=== PATIENT | male | born 1930 | race Caucasian/White ===

== ENCOUNTER → 2016-10-06 | Outpatient (CLI) | payer OTHER | LOC: BHFA 13:00 | PROVIDERS: ATTEND Internal Medicine Cardiovascular Disease | DX: I25.10 Atherosclerotic heart disease of native coronary artery without angina pectoris (principal); I10 Essential (primary) hypertension | CPT/HCPCS: 78452; 93017; A9500; J2785 ==

== ENCOUNTER 2016-12-09 06:53 | Inpatient (IN) | payer OTHER ==
[~2016-12-09 06:53] MED LIST: ACETAMINOPHEN 325 MG TAB PO ONE; CEFAZOLIN 2 GM/DEXTR 100 ML IV ONE; CHLORHEXIDINE GLUC HIBICLENS 118 ML BTL TP ONE; DEXAMETHASONE 4 MG/ML VIAL IVP ONE; FAMOTIDINE 20 MG TAB PO ONE; ROPIVACAINE 0.2% 80 MG, EPINEPHrine 0.2 MG in BAG 0 ML IU ONE; TRANEXAMIC ACID 3,000 MG in NS 50 ML IRR ONE
[2016-12-09] MEDS ORDERED: LIDOCAINE 1% 2 ML INJ ONE (07:34)
[2016-12-09] MEDS ORDERED: VANCOMYCIN 1 GM VIAL ONE (08:10)
[2016-12-09] MEDS ORDERED: TRANEXAMIC ACID 3,000 MG/50 ML BAG IRR ONE (08:10)
[2016-12-09] MEDS ORDERED: LR 1,000 ML IV ONE (08:20)
[2016-12-09] MEDS ORDERED: LIDOCAINE 1% 5 ML SDV ID PRN (08:20)
[2016-12-09] MEDS ORDERED: fentaNYL 100 MCG/2 ML INJ ONE (08:25)
[2016-12-09] MEDS ORDERED: MIDAZOLAM 2 MG/2 ML VIAL ONE (09:03)
[2016-12-09] MEDS ORDERED: LIDOCAINE 2% 5 ML SDV ONE (09:25)
[2016-12-09] MEDS ORDERED: PROPOFOL/EMULSION 500 MG/50 ML BOTTLE IV ONE (09:27)
[2016-12-09] MEDS ORDERED: ONDANSETRON 4 MG/2 ML VIAL IVP PRN (10:37)
[2016-12-09] MEDS ORDERED: LACTULOSE 20 GM/30 ML UDCUP PO PRN (10:37)
[2016-12-09] MEDS ORDERED: PHARMACY PAIN CONSULT 1 EA MISC PRN (10:37)
[2016-12-09] MEDS ORDERED: METOCLOPRAMIDE 10 MG/2 ML VIAL IVP PRN (10:37)
[2016-12-09] MEDS ORDERED: MAGNESIUM HYDROXIDE 30 ML UDCUP PO PRN (10:37)
[2016-12-09] MEDS ORDERED: DIPHENOXYLATE/ATROPINE LOMOTIL 1 TAB PO PRN (10:37)
[2016-12-09] MEDS ORDERED: ONDANSETRON DISINTEGRATING 4 MG TAB PO PRN (10:37)
[2016-12-09] MEDS ORDERED: POLYETHYLENE GLYCOL 3350 17 GM PKT PO PRN (10:37)
[2016-12-09] MEDS ORDERED: PROMETHAZINE HCL 25 MG SUPPR PR PRN (10:37)
[2016-12-09] MEDS ORDERED: TEMAZEPAM 15 MG CAP PO PRN (10:37)
[2016-12-09] MEDS ORDERED: CYCLOBENZAPRINE 10 MG TAB PO PRN (10:37)
[2016-12-09] MEDS ORDERED: diphenhydrAMINE 25 MG CAP PO PRN (10:37)
[2016-12-09] MEDS ORDERED: BISACODYL 10 MG SUPP PR PRN (10:37)
--- NOTE | 2016-12-09 10:42 | POSTOPPROG ---
Post Op Note Date of Operation: 12/09/16 Surgeon: Lyle Suazo Shoe Repairer Helper: radha suazo Anesthesiologist: dr. izquierdo Anesthesia: Spinal, Other (Specify) (adductor canal block) Pre-op Diagnosis: R knee OA Post-op Diagnosis: same Indication: right knee pain due to OA that failed conservative measures Procedure: R TKA Findings: severe knee OA Inf/Abcess present in the surg proc area at time of surgery?: No EBL: 50-100
[2016-12-09] MEDS ORDERED: NS 1,000 ML IV SCH (10:45)
[2016-12-09] MEDS: ACETAMINOPHEN 325 MG TAB PO SCH ×3 (12:05→23:51)
[2016-12-09] MEDS: ceFAZolin 2 GM/DEXTROSE 100 ML IV SCH ×2 (14:22→21:03)
[2016-12-09] MEDS: oxyCODONE IR 5 MG TAB PO PRN ×3 (14:24→21:02)
[2016-12-09] MEDS ORDERED: FERROUS SULFATE 325 MG TAB PO SCH (18:00)
--- NOTE | 2016-12-09 20:37 | GOP ---
[f rep st] OPERATIVE REPORT DATE OF OPERATION: 12/09/2016 SURGEON: Kat Dunn MD ORACLE ARCHITECT: VIVIEN Delgado ANESTHESIA: Spinal. PREOPERATIVE DIAGNOSIS: Right knee osteoarthritis. POSTOPERATIVE DIAGNOSIS: Right knee osteoarthritis. PROCEDURE PERFORMED: Right total knee arthroplasty. FINDINGS/PATHOLOGY: Severe medial and patellofemoral osteoarthritis. Preoperative flexion contracture of 10 degrees. ESTIMATED BLOOD LOSS: 30 cc. INDICATIONS: This is an 86-year-old male with severe and progressive pain and deformity of the right knee unresponsive to conservative care. Risks and benefits of the surgical intervention were explained in detail. DESCRIPTION OF PROCEDURE: The patient was brought to the operative room and placed on the table in the supine position. Spinal anesthesia was induced without difficulty. A pneumatic tourniquet was applied about the right proximal thigh, and the leg was prepped and draped in a sterile fashion. The leg alex was applied. After exsanguination by elevation the tourniquet was inflated to 250 mm of mercury. Incision was made anterior medial from the tibial tuberosity to a point 2 cm proximal to the superior pole of the patella. Medial parapatellar arthrotomy was carried out from the superior pole of the patella and posteriorly in line with the fibers of the Type 2 VMO. The medial collateral ligament was elevated and the infrapatellar fat pad was resected. The patella was everted and the articular surface was excised. A 35 mm patellar button was placed. The distal femoral guide hole was drilled and the 6 degree alignment juwan was placed. An 8 mm distal femoral cut was made without difficulty. Attention was turned to the tibia and a standard 9 mm cut based on the lateral tibial condyle was performed. The tibial articular surface was excised without difficulty. Attention was turned back to the femur and a size 4 Triathlon femoral cutting block was positioned. Anterior, posterior, and chamfer cuts were made, followed by the intercondylar box cut. The knee was extended and the remnants of the medial and lateral meniscus were excised. The posterior capsule was injected with ropivacaine, epinephrine and Toradol. A size 4 MIS mini-keel tibial tray was positioned. Trial reduction was then carried out. There was excellent range of motion, alignment, and stability using the 11 mm polyethylene. All trials were then removed. The joint was thoroughly irrigated and carefully dried. Two packages of cement and 2 grams of vancomycin were mixed in the vacuum mixer and placed on the fixation surfaces of all surfaces of the components. The components were implanted and all excess cement was thoroughly removed. The permanent 11 mm polyethylene X3 was placed without difficulty. The tourniquet was deflated and all bleeders were coagulated. The wound was thoroughly irrigated and closed using interrupted sutures of 2-0 Vicryl for the joint capsule. The subcu was closed with 3-0 Vicryl and the skin with 4-0 Monocryl. Dermabond and Steri-Strips were applied followed by a compressive dressing. The patient was then moved from the operating room to the recovery room in good condition, having tolerated the procedure well. /[id number]/MODL MTDD
[2016-12-09] MEDS: SENNOSIDES/DOCUSATE SODIUM TAB PO SCH (21:02)
[2016-12-10] MEDS: ACETAMINOPHEN 325 MG TAB PO SCH ×2 (05:04→11:13)
[2016-12-10 05:39] LABS: HEMATOCRIT 25.2 % (40.0-51.0); HEMOGLOBIN 8.7 g/dL (13.7-17.5)
[2016-12-10 05:53] LABS: ANION GAP 8 mEq/L (8-16); CALCIUM 8.8 mg/dL (8.5-10.4); CARBON DIOXIDE 22 mEq/l (22-31); CHLORIDE 109 mEq/L (97-110); CREATININE 1.2 mg/dL (0.7-1.3); GLOMERULAR FILTRATION RATE 57; GLUCOSE 95 mg/dL (70-100); POTASSIUM 4.6 mEq/L (3.5-5.2); SODIUM 139 mEq/L (134-144)
[2016-12-10] MEDS ORDERED: GABAPENTIN 100 MG CAP PO SCH (06:00)
[2016-12-10 08:13] VITALS: PULSE 57; RESP 18; TEMP 97.7
[2016-12-10] MEDS ORDERED: amLODIPine BESYLATE 5 MG TAB PO SCH (09:00)
[2016-12-10] MEDS ORDERED: ASPIRIN 81 MG CHEWABLE TAB PO SCH (09:00)
[2016-12-10] MEDS ORDERED: SPIRONOLACTONE 25 MG TAB PO SCH (09:00)
[2016-12-10] MEDS ORDERED: FAMOTIDINE 20 MG TAB PO SCH (09:00)
[2016-12-10] MEDS ORDERED: Febuxostat [Uloric] 80 MG PO SCH (09:00)
[2016-12-10] MEDS: oxyCODONE IR 5 MG TAB PO PRN (09:54)
[2016-12-10] MEDS: SENNOSIDES/DOCUSATE SODIUM TAB PO SCH (09:54)
[2016-12-10 09:56] VITALS: BP 145/57
[2016-12-10 10:08] VITALS: O2SAT 97
[2016-12-10] MEDS ORDERED: CLOPIDOGREL BISULFATE 75 MG TAB PO SCH (11:00)
--- NOTE | 2016-12-10 11:26 | SOAPPROG ---
SOAP Progress Note Assessment/Plan: Assessment: Patient is doing well POD 1 s/p R TKA Pain management: pain is well controlled on oral pain meds. VTE ppx: recommend resuming plavix and aspirin, cont DAVY and SCDs Anemia: level is expected initially postop. Asymptomatic. Continue to monitor D/c planning: d/c to home today pending release from PT Plan: 12/10/16 11:25 Subjective: Alber is doing well this morning, denies SOB, chest pain and N/V. Objective: Vital Signs Temp Pulse Resp BP Pulse Ox 36.5 C 57 L 18 145/57 H 97 12/10/16 08:10 12/10/16 08:10 12/10/16 08:10 12/10/16 09:55 12/10/16 08:30 Laboratory Results 12/10/16 05:14 12/10/16 05:14 12/09/16 12/10/16 12/11/16 05:59 05:59 05:59 Intake Total 2955 Output Total 1430 Balance 1525 RLE: incision dressing is clean and dry, NVI, +pf/df ICD10 Worksheet Patient Problems: Problems Problem Status Onset Primary localized osteoarthritis of right knee Acute Acetabulum fracture, left Acute Atrial fibrillation Acute Chronic obstructive pulmonary disease with acute exacerbation Acute Dyspnea Acute Flu Acute
--- NOTE | 2016-12-11 11:12 | GDS ---
[f rep st] DISCHARGE SUMMARY ADMISSION DIAGNOSIS: Right knee osteoarthritis. DISCHARGE DIAGNOSIS: Right knee osteoarthritis. PROCEDURE: Right total knee arthroplasty. VTE PROPHYLAXIS: Plavix recommended. BRIEF DESCRIPTION OF HOSPITAL STAY: Patient was admitted for an elective joint arthroplasty. The p atient tolerated the procedure well and has passed physical therapy. The patient was given appropri ate antibiotic prophylaxis and venous thromboembolism prophylaxis. The patient's pain was well cont rolled on oral pain medication, patient was holding down food, and had urinated. Decision was made to discharge the patient. The patient was given post-operative prescriptions pre-operatively. PLAN: Please follow up as scheduled in Dr. Dunn's office on December 28 at 12:45. /[id number]/MODL
== END 2016-12-10 11:30 | disposition home or self-care (01) | DRG 470 ==
LOC: F3N 06:53
PROVIDERS: ADMIT Orthopaedic Surgery; ATTEND Orthopaedic Surgery
PROC: 0SRC0J9 Replacement of Right Knee Joint with Synthetic Substitute, Cemented, Open Approach (ICD-10-PCS; principal; 2016-12-09 09:15)
DX: M17.11 Unilateral primary osteoarthritis, right knee (principal); D64.9 Anemia, unspecified; I25.10 Atherosclerotic heart disease of native coronary artery without angina pectoris; Z95.1 Presence of aortocoronary bypass graft; Z95.5 Presence of coronary angioplasty implant and graft; I12.9 Hypertensive chronic kidney disease with stage 1 through stage 4 chronic kidney disease, or unspecified chronic kidney disease; N18.9 Chronic kidney disease, unspecified; I73.9 Peripheral vascular disease, unspecified; E78.5 Hyperlipidemia, unspecified; Z85.3 Personal history of malignant neoplasm of breast; Z87.821 Personal history of retained foreign body fully removed
CPT/HCPCS: 97116-GP; 97161-GP; 97165-GO; 97530-GP; C1713; G8978-GP-CI; G8979-GP-CI; G8987-GO-CJ; G8988-GO-CI; G8989-GO-CI; J0171; J0690; J1100; J2250; J2704; J2795; J3010; J3370

== ENCOUNTER 2016-12-12 20:09 | Emergency (ER) | payer OTHER ==
--- NOTE | 2016-12-12 20:23 | EDPHY ---
H & P HPI/ROS: CHIEF COMPLAINT: Family is concerned that patient is over-sedated HISTORY OF PRESENT ILLNESS: This patient is an 86 year old male arriving via EMS complaining of a possible reaction to oxycodone onset this morning around 10:00, 10 hours ago. He is currently post-op day three following total knee replacement by Dr. Dunn on Wednesday. He was discharged home around noon with a prescription for oxycodone 10mg. His family states he has had an adverse reaction to oxycodone in the past (altered mental status, depressed respiration). The family called Dr. Dunn's office, concerned about over-sedation, and received a prescription for oxycodone 5mg and Tramadol 25mg instead. The family states that he did well yesterday, and had a normal dinner and completed normal activities. They state he went to bed around 10:15pm last night, and they could not easily wake him around 10:00 this morning. Upon waking, the patient took another dose of 5mg oxycodone, 25mg Tramadol, and 1000mg Tylenol. His family reports he was very "out of it" throughout the day, and was unable to use his breathing machine (incentive spirometer) as usual. They state he is usually very sharp. Around 6:00 PM, they called Dr. 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 Currently, he says that he feels well. He denies fever, shortness of breath, nausea, or other associated symptoms. He states he does not feel much pain in his knee except for when he moves it. REVIEW OF SYSTEMS: A ten point review of systems was performed and is negative with the exception of the items mentioned in the HPI. History and ROS obtained form patient and from patient's family. - Personal History Tetanus Vaccine Date: 2015 - Medical/Surgical History PMH: 1. COPD on home oxygen 2. CAD post CABG in 1998 3. Abdominal aortic aneurysm 4. Chronic kidney disease 5. Gout 6. Anemia 7. Chronic thrombocytopenia 8. Atrial fibrilation 9. Henry's Palsy 10. Hypertension 11. Hyperlipidemia 12. History of breast cancer Hx Asthma: No Hx Chronic Respiratory Disease: Yes Hx Diabetes: No Hx Cardiac Disease: Yes Hx Renal Disease: No Hx Cirrhosis: No Hx Alcoholism: No Hx HIV/AIDS: No Hx Splenectomy or Spleen Trauma: No Other PMH: 1. Coronary artery bypass x 4 2004. 2. COPD. 3. Abdominal aortic aneurysm. 4. Chronic kidney disease. 5. Chronic thrombocytopenia. 6. Gout. 7. Anemia. 8. Atrial fibrillation. 9. Hypertension. 10. Hyperlipidemia. 11. Henry's palsy. 12. Breast cancer. 13. 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 Lives independently, but his children are present frequently. Still working. - Physical Exam Exam: General Appearance: Alert. Vital signs reviewed. BP 148/60, pulse ox 90% on 2 L. Eyes: Pupils equal and round, no conjunctival injection, no discharge. Anicteric. ENT, Mouth: Mucous membranes are moist, no oropharyngeal erythema or edema. Neck: No lymphadenopathy, supple. Respiratory: Lungs are clear to auscultation; no wheezes, rales, or rhonchi. Cardiovascular: Regular rate and rhythm; no murmur, rub, or gallop. Gastrointestinal: Abdomen is soft and nontender, no masses or organomegaly, bowel sounds normal. Skin: Warm and dry, no rashes on exposed skin, normal color. Back: Nontender to palpation over the thoracolumbar spine. No CVAT. Extremities: Edema, mild warmth, and mild erythema around the surgical dressing on the right knee. No lower extremity edema, no calf tenderness or swelling. Strong dorsalis pedis pulse in right leg. Neurological: Alert and oriented. Speech is fluent and appropriate. GCS 15. Moving all four extremities easily and equally and spontaneously. Pupils small, equal, reactive. Facial expressions symmetric. Tongue midline. Psychiatric: Normal affect. Constitutional: Initial Vital Signs Temperature (C) 37 C 12/12/16 20:24 Heart Rate 80 12/12/16 20:24 Respiratory Rate 16 12/12/16 20:24 Blood Pressure 148/6 H 12/12/16 20:24 O2 Sat (%) 90 L 12/12/16 20:24 O2 Delivery Mode Nasal Cannula O2 (L/minute) 1 Allergies/Adverse Reactions: lisinopril [Lisinopril] Allergy (Severe, Verified 07/15/16 12:57) Edema of Extremities oxycodone Allergy (Verified 12/12/16 20:23) simvastatin [From Zocor] Allergy (Verified 12/09/16 08:41) hives/lip swelling tramadol Allergy (Verified 12/12/16 20:23) Home Medications: Medication Instructions Recorded Aspirin [Aspirin 81mg (*)] 81 mg PO DAILY 02/14/16 Gabapentin [Neurontin 100 MG (*)] 100 mg PO DAILY06 02/14/16 Multivitamins [Multivitamin (*)] 1 each PO DAILY 02/14/16 Niacin [Niacin 500 mg (*)] 750 mg PO DAILY18 02/14/16 Febuxostat [ULORIC] 80 mg PO DAILY 02/15/16 amLODIPine BESYLATE [Norvasc 5 mg 5 mg PO DAILY 07/15/16 (*)] Acetaminophen [Tylenol 325mg (*)] 650 mg PO Q4HRS PRN #0 tab 07/16/16 Clopidogrel Bisulfate [Plavix (*)] 75 mg PO DAILY@18 12/09/16 Ferrous Sulfate [Ferrous Sulf 325 325 mg PO DAILY@18 12/09/16 MG (*)] Spironolactone [Aldactone 25 MG 25 mg PO DAILY 12/09/16 (*)] Acetaminophen [Tylenol 325mg (*)] 650 mg PO Q6HRS #0 tab 12/10/16 Sennosides/Docusate Sodium 1 - 2 tab PO BID #0 tab 12/10/16 [Senokot-S] oxyCODONE IR [Oxycodone Ir (*)] 5 - 10 mg PO Q3HRS PRN #0 tab 12/10/16 Medical Decision Making - Diagnostics EKG Interpretation: The 12 lead EKG was interpreted by myself. See hard copy and/or "tracemaster" electronic copy for interpretation. Sinus, HR 65, LVH. ED Course/Re-evaluation: This patient is an 86 year old male presenting with a possible adverse reaction to oxycodone following a total knee replacement surgery Wednesday, three days ago. He is currently awake and alert. On exam, he has some swelling, mild erythema, and warmth around his surgical dressing. Family reports that he was lethargic today after taking oxycodone. They spoke with Dr. Vikki short and he recommended a different medication, they aren't sure what. 21:34 Reassessed patient. Waiting engineering professionals from Dr. Florez. Currently not wearing his DAVY hose. Prakash bandage removed immediately post op per patients daughter. Last Tylenol dose 1,000mg at 10:00am per daughter. 21:[address] Florez. Determined the medication recommended was Nucynta. 21:51 Spoke with patient and his family. Explained different medications including dosing for Tylenol and Tramadol. Since last medication was given at 10 :00 today, it is unlikely that he is still receiving pain relief from his Tylenol, Tramadol, or Oxycodone. Daughter is concerned and states that she needs to know exactly what to do. In discussion with family decided not to introduce any new medications, but to continue with more regular dosing of tramadol and tylenol. Plan: Give Tramadol 25mg every 6 hours as needed, and Tylenol 500-1000mg every 8 hours regularly during the day (no more than 3000 mg in 24 hours). Record dosing. They are also worried about possible infection and were advised to follow this adage: If your skin is warm like a cat was snugging you, okay. Hot enough to "gonzalez an egg", cause for concern. I do not think there is infection at this point in time, based upon my exam of the knee, dressing not removed. The patient does not appear to be over-narcotized to me. He is participating in the discussion, is alert and appropriate. Initial pulse ox was slightly low , subsequent pulse ox normal (without oxygen prior to discharge). Five family members at bedside. Daughter does not want to use oxycodone again for her father's pain relief. Differential Diagnosis: In this situation I considered over-sedation with lethargy and respiratory depression, inadequate pain relief, concern of family members about use of opioids in the elderly, and post-op infection. - Data Points Medications Given: Discontinued Medications Acetaminophen (Tylenol) 1,000 mg PO EDNOW ONE Stop: 12/12/16 22:30 Last Admin: 12/12/16 22:40 Dose: 1,000 mg Departure - Departure Disposition: Home, Routine, Self-Care Clinical Impression: Postoperative pain of right knee Condition: Good Instructions: Knee Pain (ED) Additional Instructions: 1. Pain management schedule Administer 1000mg Tylenol every 8 hours for pain. Administer 1-2 25mg Tramadol every six hours as needed for pain. Start with one. You may administer a second 25mg Tramadol if pain is not adequately controlled. If this does not work for pain management, call your orthopedist for additional suggestions. You can also call the emergency department. 2. Follow up with Dr. Dunn as scheduled. 3. Carefully review your post-op instructions. Be sure to do your exercises and to wear your Davy hose. 3. Return to the ED for uncontrollable pain, fever, nausea and vomiting, heat "hot enough to gonzalez an egg" at the surgical side, or other worsening of condition. Referrals: Patient,NotPresent [Unknown] - As per Instructions Lyle Dunn MD [Medical Doctor] - As per Instructions Report Scribed for: Emily Gudino Report Scribed by: Shanae Ashley Date of Report: 12/12/16 Time of Report: 20:40 Physician Review and Approval Statement: 12/12/16 20:23 Portions of this note were transcribed by the paramedical aide. I, Dr. Emily Gudino, personally performed the history, physical exam, and medical decision- making; and confirmed the accuracy of the information in the transcribed note.
[2016-12-12 20:31] VITALS: RESP 16
--- NOTE | 2016-12-12 20:33 | CPEKG ---
Heart Rate: 65 RR Interval: 923 P-R Interval: 168 QRSD Interval: 90 QT Interval: 420 QTC Interval: 437 P [place]: -59 QRS [place]: 53 T Wave [place]: 37 EKG Severity - ABNORMAL ECG - EKG Impression: SINUS OR ECTOPIC ATRIAL RHYTHM EKG Impression: ATRIAL PREMATURE COMPLEX EKG Impression: LEFT VENTRICULAR HYPERTROPHY Electronically Signed By: Emily Gudino 13-Dec-2016 00:15:58
[2016-12-12] MEDS ORDERED: ACETAMINOPHEN 500 MG TAB PO ONE (22:29)
[2016-12-12 22:49] VITALS: BP 156/71; PULSE 75; TEMP 98.4; O2SAT 96
== END 2016-12-12 22:49 | disposition home or self-care (01) ==
LOC: EDUNIT#
DX: G89.18 Other acute postprocedural pain (principal); M25.561 Pain in right knee; J44.9 Chronic obstructive pulmonary disease, unspecified; I25.810 Atherosclerosis of coronary artery bypass graft(s) without angina pectoris; I12.9 Hypertensive chronic kidney disease with stage 1 through stage 4 chronic kidney disease, or unspecified chronic kidney disease; N18.9 Chronic kidney disease, unspecified; Z79.82 Long term (current) use of aspirin; Z85.3 Personal history of malignant neoplasm of breast; Z87.891 Personal history of nicotine dependence

== ENCOUNTER → 2017-05-26 | Outpatient (CLI) | payer OTHER | LOC: FIMAGING 16:58 | PROVIDERS: ATTEND Surgery | DX: I71.4 Abdominal aortic aneurysm, without rupture (principal); Z95.5 Presence of coronary angioplasty implant and graft ==

== ENCOUNTER → 2018-02-04 | Outpatient (CLI) | payer OTHER ==
[~2018-02-04] MED LIST changes: -ACETAMINOPHEN 325 MG TAB PO ONE; -CEFAZOLIN 2 GM/DEXTR 100 ML IV ONE; -CHLORHEXIDINE GLUC HIBICLENS 118 ML BTL TP ONE; -DEXAMETHASONE 4 MG/ML VIAL IVP ONE; -FAMOTIDINE 20 MG TAB PO ONE; +IOPAMIDOL (ISOVUE 370) 100 ML BTL IV ONE; -ROPIVACAINE 0.2% 80 MG, EPINEPHrine 0.2 MG in BAG 0 ML IU ONE; -TRANEXAMIC ACID 3,000 MG in NS 50 ML IRR ONE
== END ==
LOC: FIMAGING 11:48
PROVIDERS: ATTEND Surgery
DX: I65.23 Occlusion and stenosis of bilateral carotid arteries (principal); I65.02 Occlusion and stenosis of left vertebral artery; I71.4 Abdominal aortic aneurysm, without rupture
CPT/HCPCS: 70450; 70496; 70498; 74174; Q9967; 82565-PO